=== PATIENT | male | born 1955 | race Two or more races ===

== ENCOUNTER 2023-05-27 11:16 | Emergency (ER) | payer MEDICARE, MEDICAID, OTHER ==
[~2023-05-27] VITALS: Ht 172.7 cm; Wt 94.1 kg
[~2023-05-27 11:16] MED LIST: IBU800T
[2023-05-27 12:12] VITALS: BP 135/79
[2023-05-27] MEDS ORDERED: ACETAMINOPHEN 500 MG TAB PO ONE (13:15)
[2023-05-27] MEDS ORDERED: IBUP-1456 PO (13:26)
[2023-05-27] MEDS ORDERED: METH-1182 PO (13:26)
== END 2023-05-27 13:35 | disposition home or self-care (01) ==
LOC: ER 11:16
DX: S16.1XXA Strain of muscle, fascia and tendon at neck level, initial encounter (principal); S39.012A Strain of muscle, fascia and tendon of lower back, initial encounter; M50.30 Other cervical disc degeneration, unspecified cervical region; M51.36 Other intervertebral disc degeneration, lumbar region; Z88.6 Allergy status to analgesic agent; V43.62XA Car passenger injured in collision with other type car in traffic accident, initial encounter; Y93.89 Activity, other specified; Y92.89 Other specified places as the place of occurrence of the external cause; Y99.8 Other external cause status
CPT/HCPCS: 72040; 72100